=== PATIENT | male | born 1975 | race Two or more races ===

== ENCOUNTER 2017-01-25 18:12 | Emergency (ER) | payer OTHER ==
[~2017-01-25] VITALS: Ht 167.6 cm; Wt 74.8 kg
[2017-01-25 19:40] VITALS: BP 144/79
[2017-01-25] MEDS ORDERED: IBUPROFEN 600 MG TAB PO ONE ×2 (20:13→20:15)
== END 2017-01-25 20:35 | disposition home or self-care (01) ==
LOC: ER 18:12
DX: S56.312A Strain of extensor or abductor muscles, fascia and tendons of left thumb at forearm level, initial encounter (principal); S56.311A Strain of extensor or abductor muscles, fascia and tendons of right thumb at forearm level, initial encounter; M62.81 Muscle weakness (generalized); X58.XXXA Exposure to other specified factors, initial encounter; Y93.89 Activity, other specified; Y92.89 Other specified places as the place of occurrence of the external cause; Y99.8 Other external cause status